=== PATIENT | female | born 1995 | race Caucasian/White ===

== ENCOUNTER → 2019-09-08 10:49 | Outpatient (BNVA) | payer SELFPAY | PROVIDERS: Family Provider Nurse Practitioner; Visit Provider Nurse Practitioner Family | DX: Z11.3 Encounter for screening for infections with a predominantly sexual mode of transmission (principal); R30.0 Dysuria | CPT/HCPCS: 81001; 86592; 87389; 87491; 87591; 87661 ==

== ENCOUNTER → 2020-01-26 09:33 | Outpatient (BNVA) | payer SELFPAY | PROVIDERS: Family Provider Nurse Practitioner; Visit Provider Family Medicine | DX: N30.01 Acute cystitis with hematuria (principal); R30.0 Dysuria | CPT/HCPCS: 81003 ==

== ENCOUNTER 2020-03-25 19:39 | Emergency (ER) | payer SELFPAY ==
[2020-03-25 19:43] VITALS: BP 137/85; PULSE 108; RESP 16; TEMP 36.7; O2SAT 96; BMI 21.8
--- NOTE | 2020-03-25 19:50 | ED_ITS ---
HPI - Anxiety General: Chief Complaint: Anxiety Stated Complaint: Anxiety, SOB Time Seen by Provider: 03/25/20 19:42 Source: patient and EMS Mode of arrival: EMS Limitations: no limitations History of Present Illness: HPI narrative: 24-year-old female states that roughly 1 hour ago she stood up and started feeling anxious and had palpitations. She states she developed tingling and then passed out. She states that she was out for just seconds. She denies any chest pain but does feel anxious currently. She denies any vomiting or diarrhea. She denies any abdominal pain. Associated symptoms: Reports syncope; Deny chills, fever(s), headache(s), nausea or vomiting Review of Systems Const: Denies: fever(s), chills, body aches or change in appetite Eyes: Denies: blurry vision or eye discomfort ENMT: Denies: throat pain or dental pain Card: Reports: syncope Resp: Denies: dyspnea GI: Denies: abdominal pain, nausea, vomiting or diarrhea : Denies: dysuria Musc: Denies: neck pain or back pain Skin/Breast: Denies: rash Neuro: Denies: headache(s) Psych: Reports: anxiety Glenn/Lymph: Denies: easy bruising All/Imm: Denies: urticaria PFSH ED PFSH: Family History Family/Other Dementia Alzheimers Social History Smoking and tobacco status: current every day smoker cigarettes Packs smoked per day: 0.5 Years cigarettes smoked: 6 Second hand smoke exposure: Yes Alcohol intake: current Alcohol intake frequency: few times a week Alcohol type: other Lives independently: Yes Household members: children Housing: House Marital status: Number of children: 2 service: No Current occupational status: unemployed and student Current occupation: [employer] Pets and animals: Yes Pets & animals: other Pets & animal details: rabbit History of recent travel: No Current gender identity: Female Female Reproductive History: Date of last menstrual period: 03/10/20 Physical Exam Const: COMMON NORMALS: no acute distress, patient oriented x3 and healthy appearing HENMT: COMMON NORMALS: normocephalic and atraumatic HEAD & SCALP: normocephalic and atraumatic Eye: COMMON NORMALS: Equal, round and reactive pupils present and EOMs intact bilaterally PUPIL: Yes Equal, round and reactive pupils present Neck/C-Spine: COMMON NORMALS: full ROM and supple Chest: COMMONS NORMALS: normal inspection of the chest and normal palpation of entire chest wall Resp: COMMON NORMALS: normal respiratory effort, No retractions, No use of accessory muscles and clear to auscultation bilaterally AUSCULTATION: clear to auscultation bilaterally Cardio: COMMON NORMALS: regular rate, regular rhythm and No murmurs present (Cardio) RATE: regular rate RHYTHM: regular rhythm GI: COMMON NORMALS: Normal to inspection, nondistended, normoactive bowel sounds present, Soft to palpation, non-tender and no masses PALPATION: Yes Soft to palpation Extremity: COMMON NORMALS: normal to inspection and full ROM Neuro: COMMON NORMALS: patient oriented x3, moves all extremities and no focal motor deficits Psych: COMMON NORMALS: mental status grossly normal, Normal thought process present and cooperative MOOD & AFFECT: Yes anxious THOUGHT PROCESS: Normal thought process present Skin: COMMON NORMALS: no rashes or lesions noted and no wounds GENERAL SKIN EXAM: no rashes or lesions noted Course Vital Signs: Vital signs: Vital Signs Temperature 98.0 F 03/25/20 19:43 Pulse Rate 103 H 03/25/20 20:24 Respiratory Rate 12 03/25/20 20:24 Blood Pressure 128/76 03/25/20 20:24 Pulse Oximetry 98 03/25/20 20:24 MDM - Anxiety MDM Narrative: Medical decision making narrative: Patient presents here with syncopal event along with anxiety. Syncope is likely due to an anxiety attack. EKG and lab work here are normal. Patient feels improved. She has no signs of pulmonary bruising. She is stable for discharge is return if worsening. EKG Data^: EKG 1: Attestation: I personally reviewed and interpreted this EKG as follows: EKG interpretation date: 03/25/20 EKG interpretation time: 20:07 Interpretation: nsr hr [address] or t wave abnormalities qrs 85 qtc 386 Lab Data: Labs: Lab Results 03/25/20 03/25/20 Range/Units 20:00 20:14 WBC 10.0 (4.0-10.0) 10^3/ uL RBC 3.94 L (4.1-5.3) 10^6/u L Hgb 12.0 (11.5-15.3) g/dL Hct 37.3 (37.0-47.0) % MCV 94.7 (81-99) fL MCH 30.5 (28.0-34.0) pg MCHC 32.2 (30.0-36.0) g/dL RDW 14.7 (12.1-15.1) % Plt Count 340 (130-400) 10^3/c mm MPV 9.7 (7.4-10.4) fL Neut % (Auto) 70.9 % Lymph % (Auto) 19.0 % [place] % (Auto) 8.3 % Eos % (Auto) 0.9 % Baso % (Auto) 0.6 % Neut # (Auto) 7.09 (1.8-7.7) 10^3/u L Lymph # (Auto) 1.9 (0.8-4.8) 10^3/u L [place] # (Auto) 0.8 (0.2-0.9) 10^3/u L Eos # (Auto) 0.1 (0.0-0.8) 10^3/u L Baso # (Auto) 0.1 (0.0-0.1) 10^3/u L Nucleated RBC % (a uto) 0 % Nucleated RBCs # 0.0 /100WBC HCG, Qual Negative (Negative) Discharge Plan Discharge Patient Disposition: Home Clinical Impression: Acute anxiety Syncope Qualifiers: Syncope type: unspecified Qualified Code(s): R55 - Syncope and collapse Condition: Stable Prescriptions: No Action nitrofurantoin monohyd/m-cryst [Macrobid] 100 mg capsule 100 mg PO BID Qty: 20 RF: 0 methen-sod phos-meth blue-hyos 81.6-40.8-0.12 mg tablet 1 tab PO QID Qty: 20 RF: 0 Discharge Orders: Discharge Order (Routine); Ordered 03/25/20 Ordered By: Haja Kimble Referrals: Shalini Lomeli, IT INFRASTRUCTURE ARCHITECT-C [Primary Care Provider] - 1-3 days Discharge Diet: Advance as tolerated Discharge Activity: Resume usual activity Patient Instructions: Syncope (ED) Coding Level of Care Code ED Expanded Function Dental Assistant for Chg Fwd Exam Comprehensive
--- NOTE | 2020-03-25 19:50 | ECG_ITS ---
[facility] Test Date: 2020-03-25 Pat Name: Kalyn Jaramillo Department: Room: Gender: Female Channel Rougher: : 1995 Requested By: Haja Kimble Order Number: [id number] Joan MD: Tata Sewell M.D. Measurements Intervals Carman Rate: 93 P: 40 [place]: 138 QRS: 66 QRSD: 85 T: 2 QT: 336 QTc: 418 Interpretive Statements SINUS RHYTHM WITH MARKED SINUS ARRHYTHMIA NONSPECIFIC T-WAVE ABNORMALITY No previous ECG available for comparison Electronically Signed On 03-26-2020 15:48:21 CDT by Tata Sewell M.D. [email or web address]
[2020-03-25] MEDS: LORazepam 2 mg/mL INJ 1 mL 1 MG IVP (20:02)
[2020-03-25 20:13] LABS: Basophils # 0.1 10^3/uL (0.0-0.1); Basophils % 0.6 %; Eosinophils # 0.1 10^3/uL (0.0-0.8); Eosinophils % 0.9 %; Hematocrit 37.3 % (37.0-47.0); Lymphocytes # 1.9 10^3/uL (0.8-4.8); Mean Corpuscular HGB Conc 32.2 g/dL (30.0-36.0); Mean Corpuscular Hemoglobin 30.5 pg (28.0-34.0); Mean Corpuscular Volume 94.7 fL (81-99); Mean Platelet Volume 9.7 fL (7.4-10.4); Monocytes # 0.8 10^3/uL (0.2-0.9); Monocytes % 8.3 %; Neutrophils # 7.09 10^3/uL (1.8-7.7); Neutrophils % 70.9 %; Nucleated Red Blood Cells % 0 %; Platelet Count 340 10^3/cmm (130-400); Red Blood Count 3.94 10^6/uL (4.1-5.3); Red Cell Distribution Width 14.7 % (12.1-15.1)
[2020-03-25 20:24] VITALS: BP 128/76; PULSE 103; RESP 12; O2SAT 98
[2020-03-25 20:48] LABS: HCG Qualitative Urine. Negative (Negative)
[2020-03-25 21:00] VITALS: BP 121/74; PULSE 78; RESP 14; O2SAT 99
== END 2020-03-25 21:02 | disposition home or self-care (01) ==
PROVIDERS: Emergency Provider Emergency Medicine; PCP Nurse Practitioner
DX: F41.9 Anxiety disorder, unspecified (principal); R55 Syncope and collapse; F17.210 Nicotine dependence, cigarettes, uncomplicated
CPT/HCPCS: 12345; 81025; 85025; 93005; 96374; 99282; 99283; J2060

== ENCOUNTER → 2020-04-02 18:43 | Outpatient (BNVA) | payer SELFPAY | PROVIDERS: PCP Nurse Practitioner; Visit Provider Family Medicine | DX: N39.0 Urinary tract infection, site not specified (principal) | CPT/HCPCS: 81003 ==

== ENCOUNTER → 2020-04-13 14:22 | Outpatient (BNVA) | payer SELFPAY | PROVIDERS: PCP Nurse Practitioner; Visit Provider Nurse Practitioner Family | DX: F41.9 Anxiety disorder, unspecified (principal); R30.0 Dysuria; F32.9 Major depressive disorder, single episode, unspecified; Z78.9 Other specified health status; N30.01 Acute cystitis with hematuria | CPT/HCPCS: 81000 ==

== ENCOUNTER → 2020-04-26 16:57 | Outpatient (BNVA) | payer SELFPAY | PROVIDERS: PCP Nurse Practitioner; Visit Provider Nurse Practitioner Family | DX: Z11.3 Encounter for screening for infections with a predominantly sexual mode of transmission (principal) | CPT/HCPCS: 81025; 86592; 86705; 86706; 86709; 86803; 87340; 87491; 87530; 87591; 87661; 87806 ==

== ENCOUNTER 2020-06-14 08:55 | Emergency (ER) | payer SELFPAY ==
[2020-06-14 09:02] VITALS: BP 149/95; PULSE 106; RESP 18; TEMP 36.2; O2SAT 100; BMI 25.3
--- NOTE | 2020-06-14 09:20 | ED_ITS ---
HPI - General: Chief complaint: Vaginal Bleeding Stated complaint: 6 weeks /bleeding Time Seen by Provider: 06/14/20 09:03 History of Present Illness: HPI Narrative: 24-year-old female who presents to the emergency room with complaint of vaginal bleeding. Patient is G4, P2. She estimates her self to be at 6 weeks at this point she has not had an evaluation by DECISION UNIT RN. Bleeding began this morning and is spotty in nature she has not had enough bleeding to need to wear a pad at this point. She does have some abdominal cramping she denies dysuria urgency or frequency by DECISION UNIT RN. Bleeding began this morning and is spotty in nature she has not had enough bleeding to need to wear a pad at this point. Complaint: vaginal bleeding Onset (ago): hour(s) Location: pelvis Severity: mild Quality: Cramping Radiation: pelvis Relieving factors: none Exacerbating factors: none Vaginal bleeding: light Date of Last Menstrual Period: 05/09/20 Associated symptoms: Reports vaginal bleeding; Deny abdominal pain, dysuria, headache(s), malaise, nausea, rash, seizures, kelly rt of breath, syncope, vaginal discharge, visual changes, vomiting or weakness Review of Systems Const: Denies: malaise ENMT: Denies: throat pain, ear or mastoid pain, nasal discharge or nasal congestion Card: Denies: syncope Resp: Denies: dyspnea, productive cough or non-productive cough GI: Denies: abdominal pain, nausea or vomiting : Denies: dysuria or vaginal discharge Skin/Breast: Denies: rash or pruritus Neuro: Denies: headache(s) PFSH ED PFSH: Medical History No pertinent past medical history Surgical History No pertinent past surgical history Family History Family/Other Dementia Alzheimers Social History Smoking and tobacco status: current every day smoker cigarettes Packs smoked per day: 0.5 Years cigarettes smoked: 6 Second hand smoke exposure: Yes Alcohol intake: never Lives independently: Yes Household members: children Housing: House Marital status: Number of children: 2 service: No Current occupational status: unemployed and student Current occupation: [employer] Pets and animals: Yes Pets & animals: other Pets & animal details: rabbit History of recent travel: No Current gender identity: Female Female Reproductive History: Date of last menstrual period: 05/09/20 Physical Exam Const: COMMON NORMALS: no acute distress GENERAL APPEARANCE: cooperative and comfortable ORIENTATION/CONSCIOUSNESS: Yes awake, Yes oriented to person, Yes oriented to place and Yes oriented to time HENMT: COMMON NORMALS: normocephalic, atraumatic and hearing grossly normal bilaterally HEAD & SCALP: normocephalic and atraumatic Neck/C-Spine: COMMON NORMALS: no JVD Resp: COMMON NORMALS: normal respiratory effort, No retractions, No use of accessory muscles and clear to auscultation bilaterally AUSCULTATION: clear to auscultation bilaterally Cardio: COMMON NORMALS: no JVD, regular rate, regular rhythm and No murmurs present (Cardio) RATE: regular rate RHYTHM: regular rhythm GI: COMMON NORMALS: Soft to palpation and No hepatosplenomegaly present AUSCULTATION: Yes normoactive bowel sounds PALPATION: Yes Soft to palpation, No Tenderness to palpation present (GI), No Guarding due to palpation present (GI) and Yes No hepatosplenomegaly present : SPECULUM EXAM - VAGINA: Yes vaginal bleeding OB/EXTERNAL & SPECULUM: vaginal bleeding Extremity: COMMON NORMALS: normal to inspection, capillary refill normal, no clubbing, cyanosis or edema, no calf tenderness and no pedal edema Neuro: SENSORIUM/ORIENTATION: Yes oriented to person, Yes oriented to place and Yes oriented to time Skin: COMMON NORMALS: no rashes or lesions noted GENERAL SKIN EXAM: no rashes or lesions noted Course Vital Signs: Vital signs: Vital Signs Temperature 97.6 F 06/14/20 11:20 Pulse Rate 92 06/14/20 11:20 Respiratory Rate 18 06/14/20 11:20 Blood Pressure 147/92 06/14/20 11:20 Pulse Oximetry 96 06/14/20 11:20 MDM - OB/Uterine Contractions MDM Narrative: Medical decision making narrative: Reviewed findings with the patient. She should have follow-up visit within the next week. If she has significantly worse bleeding return to the emergency room Lab Data: Labs: Lab Results 06/14/20 06/14/20 06/14/20 Range/Units 09:15 09:15 09:15 WBC 8.4 (4.0-10.0) 10^3/ uL RBC 4.45 (4.1-5.3) 10^6/u L Hgb 13.5 (11.5-15.3) g/dL Hct 40.9 (37.0-47.0) % MCV 91.9 (81-99) fL MCH 30.3 (28.0-34.0) pg MCHC 33.0 (30.0-36.0) g/dL RDW 13.6 (12.1-15.1) % Plt Count 340 (130-400) 10^3/c mm MPV 9.8 (7.4-10.4) fL Neut % (Auto) 65.8 % Lymph % (Auto) 25.7 % [place] % (Auto) 5.0 % Eos % (Auto) 2.4 % Baso % (Auto) 0.6 % Neut # (Auto) 5.53 (1.8-7.7) 10^3/u L Lymph # (Auto) 2.2 (0.8-4.8) 10^3/u L [place] # (Auto) 0.4 (0.2-0.9) 10^3/u L Eos # (Auto) 0.2 (0.0-0.8) 10^3/u L Baso # (Auto) 0.1 (0.0-0.1) 10^3/u L Nucleated RBC % (a uto) 0 % Nucleated RBCs # 0.0 /100WBC Ser , Meg i-Qnt 5.15 mIU/mL Blood Type O Positive Rho(D) Type Positive Discharge Plan Discharge Patient Disposition: Home Clinical Impression: Complete miscarriage Condition: Stable Prescriptions: No Action azithromycin 500 mg tablet 1,000 mg PO ONCE 1 Days Qty: 2 RF: 0 Discharge Orders: Discharge Order (Routine); Ordered 06/14/20 Ordered By: Zechariah Blood Referrals: Shalini Lomeli FNP-C [Primary Care Provider] - Activity Restrictions/Additional Instructions: Follow-up with your primary care provider within 1 week Discharge Date/Time: 06/14/20 11:23 Coding Level of Care Code ED Director Payment for Chg Fwd Exam Comprehensive
[2020-06-14 09:23] VITALS: BP 149/95; RESP 16; O2SAT 97
[2020-06-14 09:25] VITALS: BP 149/95; PULSE 92; RESP 18; O2SAT 96
[2020-06-14 09:33] LABS: Basophils # 0.1 10^3/uL (0.0-0.1); Basophils % 0.6 %; Eosinophils # 0.2 10^3/uL (0.0-0.8); Eosinophils % 2.4 %; Hematocrit 40.9 % (37.0-47.0); Hemoglobin 13.5 g/dL (11.5-15.3); Lymphocytes # 2.2 10^3/uL (0.8-4.8); Lymphocytes % 25.7 %; Mean Corpuscular Hemoglobin 30.3 pg (28.0-34.0); Mean Corpuscular Volume 91.9 fL (81-99); Mean Platelet Volume 9.8 fL (7.4-10.4); Monocytes # 0.4 10^3/uL (0.2-0.9); Neutrophils # 5.53 10^3/uL (1.8-7.7); Neutrophils % 65.8 %; Nucleated Red Blood Cells % 0 %; Platelet Count 340 10^3/cmm (130-400); Red Blood Count 4.45 10^6/uL (4.1-5.3); Red Cell Distribution Width 13.6 % (12.1-15.1); White Blood Count 8.4 10^3/uL (4.0-10.0)
--- NOTE | 2020-06-14 09:40 | US_ITS ---
WS: [id number] TRANSABDOMINAL PELVIC AND TRANSVAGINAL PELVIC ULTRASOUND HISTORY: vaginal bleeding COMPARISON: None available. Uterus: 5.7 cm x 3.3 cm x 5.2 cm. Slightly retroflexed uterus. On transvaginal imaging there is compl ete retroflexion of the uterus. Endometrium: 0.8 cm. Normal homogeneity. No intrauterine gestation. Benign calcification along the ju nctional zone. Right ovary: 3.0 cm x 2.7 cm x 1.5 cm. Small follicles. No solid or cystic mass. Normal vascularity. Left ovary: 2.4 cm x 1.7 cm x 2.1 cm. Small follicles. No solid or cystic mass. Normal vascularity. Physiologic free fluid. US/US pelvic with transvaginal IMPRESSION: No intrauterine gestation. If there is a positive beta hCG ectopic is not excluded.
[2020-06-14 09:48] LABS: HCG Quantitative 5.15 mIU/mL
[2020-06-14 11:20] VITALS: BP 147/92; PULSE 92; RESP 18; TEMP 36.4; O2SAT 96
== END 2020-06-14 11:23 | disposition home or self-care (01) ==
PROVIDERS: Emergency Provider Family Medicine; PCP Nurse Practitioner
DX: O03.9 Complete or unspecified spontaneous abortion without complication (principal); F17.210 Nicotine dependence, cigarettes, uncomplicated
CPT/HCPCS: 12345; 36415; 76815; 76830; 76856; 84702; 85025; 86900; 87070; 87205; 87210; 87491; 87591; 87661; 99284

== ENCOUNTER → 2020-08-30 11:19 | Outpatient (BNVA) | payer SELFPAY | PROVIDERS: PCP Nurse Practitioner; Visit Provider Nurse Practitioner Family | DX: Z11.3 Encounter for screening for infections with a predominantly sexual mode of transmission (principal); Z30.09 Encounter for other general counseling and advice on contraception | CPT/HCPCS: 81003; 81025; 87491; 87591 ==

== ENCOUNTER → 2021-11-07 10:13 | Outpatient (BNVA) | payer OTHER, SELFPAY | PROVIDERS: PCP Nurse Practitioner; Visit Provider Nurse Practitioner Family | DX: J06.9 Acute upper respiratory infection, unspecified (principal); J40 Bronchitis, not specified as acute or chronic; R05.9 Cough, unspecified; R06.02 Shortness of breath; Z20.822 Contact with and (suspected) exposure to COVID-19 | CPT/HCPCS: 71046; 80053; 83880; 87635 ==

== ENCOUNTER → 2021-12-02 11:35 | Outpatient (BNVA) | payer OTHER, SELFPAY | PROVIDERS: PCP Nurse Practitioner Family; Visit Provider Nurse Practitioner Family | DX: F41.9 Anxiety disorder, unspecified (principal); F32.9 Major depressive disorder, single episode, unspecified; Z11.3 Encounter for screening for infections with a predominantly sexual mode of transmission; F17.200 Nicotine dependence, unspecified, uncomplicated | CPT/HCPCS: 80053; 84443; 86592; 86695; 86696; 86705; 86706; 86709; 86803; 87340; 87491; 87591; 87661; 87806 ==

== ENCOUNTER 2021-12-11 06:05 | Outpatient (CLI) | payer OTHER, SELFPAY ==
--- NOTE | 2021-12-11 06:15 | USCV_ITS ---
Sally Jaramillo Age: 26 Gender: F : 1995 Exam Date: 12/11/2021 06:20 Ordering Phys: Carmen Burk NP Technologist: TONY Exam Location: [facility] [place] Indication: PALP, SOB, POSS ENLARGED HEART SEEN ON CHEST XRAY BP: 121 / 78 HR: 72 Rhythm: Sinus Technical Quality: Adequate MEASUREMENTS (Male / Female) Normal Values 2D ECHO LV Diastolic Diameter PLAX 3.9 cm 4.2 - 5.9 / 3.9 - 5.3 cm LV Systolic Diameter PLAX 2.2 cm IVS Diastolic Thickness 0.7 cm 0.6 - 1.0 / 0.6 - 0.9 cm IVS Systolic Thickness 1.6 cm LVPW Diastolic Thickness 1.0 cm 0.6 - 1.0 / 0.6 - 0.9 cm LVPW Systolic Thickness 1.6 cm LVOT Diameter 2.0 cm LV Ejection Fraction 2D Teich 76.2 % LV Ejection Fraction MOD 2C 73.5 % LV Ejection Fraction 2C AL 76.7 % LA Diameter 2.6 cm LA Width 2.1 cm LA Height 4.1 cm RA Width 3.5 cm RA Height 3.6 cm Aorta at Sinotubular Diameter 1.8 cm M-MODE Aortic Annulus Diameter 2.5 cm LA Ao Ratio MM 1.0 MV E Point Septal Separation 0.2 cm DOPPLER AV Peak Velocity 120.0 cm/s LVOT Peak Velocity 111.0 cm/s AV Area Cont Eq vti 2.2 cm squared AV Area Cont Eq pk 2.9 cm squared MV Peak Velocity 108.0 cm/s MV Area PHT 3.6 cm squared Mitral E to A Ratio 1.3 MV E' Velocity 54.5 cm/s Mitral E to MV E' Ratio 6.0 Mitral E to LV E' Lateral Ratio 5.4 Mitral E to LV E' Septal Ratio 6.6 TR Peak Velocity 205.7 cm/s TR Peak Gradient 16.9 mmHg TR Mean Velocity 152.7 cm/s TR Mean Gradient 10.9 mmHg TR Velocity Time Integral 57.9 cm TV Peak E Velocity 68.0 cm/s Right Atrial Pressure 3.0 mmHg Pulmonary Artery Systolic Pressu 19.9 mmHg PV Peak Velocity 106.0 cm/s RV Acceleration Time 0.1 s RV Ejection Time 0.3 s RV AcT/ET 0.4 FINDINGS Left Ventricle Normal left ventricular size. LV systolic function is normal with EF of 60-65%. No regional wall motion abnormalities. Diastolic function is normal Right Ventricle The right ventricle is normal in size and function. Right Atrium The right atrium is normal in size. Left Atrium The left atrium is normal in size. Mitral Valve Structurally normal mitral valve without significant stenosis or prolapse. There is trace mitral regurgitation. Aortic Valve Structurally normal aortic valve without significant sclerosis or stenosis. There is no aortic regurgitation. Tricuspid Valve Structurally normal tricuspid valve without significant stenosis. Mild tricuspid regurgitation. Pulmonary artery systolic pressure is normal. Pulmonic Valve Structurally normal pulmonic valve without significant stenosis. There is no pulmonic regurgitation. Pericardium Normal pericardium without effusion. Aorta Normal ascending aorta dimension. CONCLUSIONS LV systolic function is normal with EF of 60-65% Diastolic function is normal Trace mitral regurgitation Mild tricuspid regurgitaion No comparison studies are available Alexy Tee MD (Electronically Signed) Final Date: 16 Dec 2021 12:22 S
== END 2021-12-11 06:06 | disposition home or self-care (01) ==
LOC: RAD 06:06
PROVIDERS: PCP Nurse Practitioner Family; Visit Provider Nurse Practitioner Family
DX: R00.2 Palpitations (principal); R06.02 Shortness of breath; R93.89 Abnormal findings on diagnostic imaging of other specified body structures
CPT/HCPCS: 93306

== ENCOUNTER 2021-12-20 08:27 | Outpatient (CLI) | payer OTHER, SELFPAY ==
--- NOTE | 2021-12-20 08:30 | US_ITS ---
WS: [id number] ULTRASOUND ABDOMEN CLINICAL INFORMATION: R74.8 - Abnormal levels of other serum enzymes COMPARISON: None. FINDINGS: Liver Size: Normal. Craniocaudal length: 14.7 cm. Echogenicity: Normal. Surface nodularity: None. Mass (size and location): None. Bile ducts Intrahepatic ducts: Normal. Common bile duct diameter: 0.42 cm. Gallbladder Small shadowing calculus, sludge ball or polyp. Gallbladder sludge: None. Gallbladder wall thickening: None. Pericholecystic fluid: None. Sonographic Krause sign: Absent. Pancreas Normal as visualized. Right kidney: Normal. Hydronephrosis: None. Size: 10.8 cm x 3.9 cm x 4.1 cm Left kidney: Normal. Hydronephrosis: None. Size: 11.4 cm x 5.0 cm x 4.2 cm. Abdominal aorta and IVC Visualized portions are normal. Ascites: None. US/US abdomen complete* [id number] IMPRESSION: 1. Normal liver. No intrahepatic biliary duct dilatation. 2. Small 3.6 mm gallbladder calculus, polyp or sludge ball. No significant sha dowing. 3. No gallbladder wall thickening or pericholecystic fluid. 4. Normal common bile duct. 5. No hydronephrosis in either kidney.
== END 2021-12-20 08:28 | disposition home or self-care (01) ==
LOC: RAD 08:28
PROVIDERS: PCP Nurse Practitioner Family; Visit Provider Nurse Practitioner Family
DX: R74.8 Abnormal levels of other serum enzymes (principal)
CPT/HCPCS: 76700

== ENCOUNTER → 2022-10-06 17:29 | Outpatient (BNVA) | payer MEDICAID, SELFPAY | PROVIDERS: PCP Nurse Practitioner Family; Visit Provider Nurse Practitioner Family | DX: R00.2 Palpitations (principal) | CPT/HCPCS: 80053; 82607; 83735; 84443; 85025 ==

== ENCOUNTER → 2022-10-20 17:06 | Outpatient (BNVA) | payer MEDICAID, SELFPAY | PROVIDERS: PCP Nurse Practitioner Family; Visit Provider Nurse Practitioner Family | DX: Z30.09 Encounter for other general counseling and advice on contraception (principal) | CPT/HCPCS: 81025 ==

== ENCOUNTER → 2022-10-29 17:20 | Outpatient (BNVA) | payer MEDICAID, SELFPAY | PROVIDERS: PCP Nurse Practitioner Family; Visit Provider Nurse Practitioner Family | DX: Z11.3 Encounter for screening for infections with a predominantly sexual mode of transmission (principal) | CPT/HCPCS: 81003; 81025; 86592; 86695; 86696; 87491; 87591; 87661; 87806 ==

== ENCOUNTER 2022-11-07 08:48 | Outpatient (CLI) | payer MEDICAID, SELFPAY ==
--- NOTE | 2022-11-07 08:45 | US_ITS ---
WS: [id number] ABDOMINAL ULTRASOUND REASON FOR EXAM: R74.8 - Abnormal levels of other serum enzymes COMPARISON: 12/20/2021 ORDER DATE: 11/07/2022 8:52 AM TECHNIQUE: Grayscale and Doppler ultrasound examination of the abdomen. FINDINGS: Pancreas: Unremarkable Abdominal aorta and IVC: Unremarkable Liver: Liver measures 13.3 cm in length. No focal abnormalities Gallbladder: Gallbladder wall thickness measures 0.3 mm. 3.7 mm 5 mm gallbladder polyp adherent to th e gallbladder wall. Left kidney: Left kidney measures 10.3 cm x 5.1 cm x 5.4 cm. No focal abnormality Right kidney: Right kidney measures 9.4 cm x 4.5 cm x 4.2 cm. No focal abnormality Vascular duplex imaging demonstrated satisfactory vascularity in the kidneys and hepatopedal portal v ein flow. US/US abdomen complete* [id number] IMPRESSION: Unchanged appearance of the gallbladder polyp compared with the previous study
== END 2022-11-07 08:49 | disposition home or self-care (01) ==
LOC: RAD 08:50
PROVIDERS: PCP Nurse Practitioner Family; Visit Provider Nurse Practitioner Family
DX: R74.8 Abnormal levels of other serum enzymes (principal); K82.4 Cholesterolosis of gallbladder
CPT/HCPCS: 76700

== ENCOUNTER → 2022-12-31 08:58 | Outpatient (BNVA) | payer BC, MEDICAID, SELFPAY | PROVIDERS: PCP Nurse Practitioner Family; Visit Provider Nurse Practitioner Family | DX: N93.9 Abnormal uterine and vaginal bleeding, unspecified (principal); N94.10 Unspecified dyspareunia | CPT/HCPCS: 81025; 87491; 87591; 87661 ==

== ENCOUNTER 2023-01-02 15:30 | Outpatient (CLI) | payer BC, MEDICAID, SELFPAY ==
--- NOTE | 2023-01-02 15:45 | US_ITS ---
WS: [id number] US pelv w/transvag [id number] HISTORY: N93.9 - Abnormal uterine and vaginal bleeding, unspecified COMPARISON: 06/14/2020 Uterus: 7.7 cm x 4.0 cm x 3.1 cm. Normal size retroverted uterus. No fibroid or mass identified. Endometrium: 0.3 cm. Normal. Right ovary: 3.8 cm x 2.9 cm x 1.9 cm. There are multiple peripheral small follicles of similar size. The number of follicles is less than 20 but suspicious for polycystic ovarian disease. Left ovary: 3.1 cm x 1.7 cm x 2.7 cm. Normal size ovary. Small scattered follicles. No free fluid in the cul-de-sac. US/US pelv w/transvag [id number] IMPRESSION: 1. Normal endometrium. 2. Increased number of peripheral follicles within the RIGHT ovary only. Corre late with possible PCOS.
== END 2023-01-02 15:31 | disposition home or self-care (01) ==
LOC: RAD 15:33
PROVIDERS: PCP Nurse Practitioner Family; Visit Provider Nurse Practitioner Family
DX: N93.9 Abnormal uterine and vaginal bleeding, unspecified (principal); N94.10 Unspecified dyspareunia; R10.32 Left lower quadrant pain
CPT/HCPCS: 76830; 76856; 81025; 87491; 87591; 87661

== ENCOUNTER → 2023-01-20 15:00 | Outpatient (BNVA) | payer BC, MEDICAID, SELFPAY | PROVIDERS: PCP Nurse Practitioner Family; Visit Provider Obstetrics & Gynecology | DX: Z30.9 Encounter for contraceptive management, unspecified (principal) | CPT/HCPCS: 87624 ==

== ENCOUNTER 2023-02-04 09:59 | Day surgery (SDC) | payer BC, MEDICAID, SELFPAY ==
[2023-01-06 12:48] VITALS: BMI 24.3
[2023-02-03 09:30] VITALS: BMI 24.3
[2023-02-04 10:22] VITALS: BP 140/91; PULSE 99; RESP 18; TEMP 36.9; O2SAT 98
[2023-02-04] MEDS: sodium chloride 0.9% 1,000 ML 30 ML IV (10:28)
--- NOTE | 2023-02-04 12:28 | P.ANESASSM_ITS ---
Pre-Anesthetic Assessment Height/Weight: Height 1.57 m Weight 60.328 kg Temp Pulse Resp BP Pulse Ox O2 Del Method 98.4 F 99 18 140/91 98 Room Air 02/04/23 10:22 02/04/23 10:22 02/04/23 10:22 02/04/23 10:22 02/04/23 10:22 02/04/23 10:22 Preop Diagnosis: GERD, Abd pain Operation Date: 02/04/23 10:45 Proposed Procedures p EGD 77041, K21.9,R14.0 ,R11.2, R19.7(Not Applicable) - Sung Parra, DO Was Beta Naz taken within 24 hours: N/A Was Clonidine taken within 24 hours: N/A Last intake: Intake Last Liquid Date 02/03/23 Last Liquid Time 21:30 Last Solid Date 02/03/23 Last Solid Time 21:30 Social Tobacco Exam alert, oriented x 3, clear to auscultation bilaterally and regular rate & rhythm Airway Submandibular: within normal limits Cervical ROM: within normal limits Mallampati: Class II Dentition: full History/ROS No significant history except as noted and No significant complaints CV/HEM None reported None reported Hepatic None reported GI Gastroesophageal Reflux Disease Metabolic None reported Musc/skel None reported Neuropsych Anxiety Anesthetic Plan ASA status: 2 Anesthesia: Anesthesia Evaluation and MAC Risk of > 500 ml blood loss (7ml/kg in children): No Medications/Allergies Home Medications Medication Instructions Recorded Confirmed Last Taken Type metoprolol tartrate 25 mg tablet 25 mg PO BID PRN tachycardia #60 12/01/22 01/20/23 Unknown Rx tabs pantoprazole 40 mg tablet,delayed 40 mg PO BID 6 weeks #84 tabs 01/06/23 02/04/23 02/03/23 Rx release (Protonix) Allergies Allergy/AdvReac Type Severity Reaction Status Date / Time Ibuprofen Allergy Unknown Unknown Uncoded 01/20/23 08:33 Current Medications Generic Name Dose Route Start Last Admin Trade Name Freq PRN Reason Stop Dose Admin Sodium Chloride 1,000 mls @ 30 mls/hr 02/04/23 10:15 02/04/23 10:28 Sodium Chloride 0.9% IV 02/05/23 10:14 30 mls/hr .Q24H JOJO Administration PFSH Anesthesia Medical History (Updated 01/25/23 @ 02:29 by Wilver Britton MD) No pertinent past medical history Surgical History No pertinent past surgical history Family History Family/Other Dementia Alzheimers Social History Smoking and tobacco status: current every day smoker cigarettes Packs smoked per day: 0.5 Years cigarettes smoked: 6 Second hand smoke exposure: Yes Alcohol intake: never Substance/Drug Use: never Lives independently: Yes Household members: children Housing: House Marital status: Number of children: 2 service: No Current occupational status: employed and student Current occupation: [employer] Pets and animals: Yes Pets & animals: other Pets & animal details: rabbit Current gender identity: Female Data Anesthesia Cardiac Studies: Echocardiogram 12/11/21 Holter Monitor 10/23/22
--- NOTE | 2023-02-04 12:41 | W.PM.OPSUD ---
Surgery/Procedure H&P Update DATE OF PROCEDURE: February 04, 2023 DATE H&P PERFORMED: 01/06/23 H&P UPDATE INFORMATION: I have reviewed H&P completed within last 30 days, I have examined patient prior to procedure and No changes to prior documentation PREOP DIAGNOSIS: GERD, Abd pain PLANNED PROCEDURE: Operation Date: 02/04/23 10:45 Proposed Procedures p EGD [id number], K21.9,R14.0 ,R11.2, R19.7(Not Applicable) - Sung Parra DO
[2023-02-04 13:05] VITALS: BP 116/87; PULSE 92; RESP 18; TEMP 36.6; O2SAT 98
[2023-02-04 13:13] VITALS: BP 124/75; PULSE 84; RESP 16; O2SAT 98
[2023-02-04 13:19] VITALS: BP 115/81; PULSE 81; RESP 18; O2SAT 95
--- NOTE | 2023-02-04 13:57 | ANE.PACU2 ---
Inpatient post-anesthesia follow up: Airway intact: Yes Vital signs: Temperature 97.8 F Pulse Rate 81 Respiratory Rate 18 Blood Pressure 115/81 Pulse Oximetry 95 Oxygen Delivery Me thod Room Air Oxygen Flow Rate Fraction of Inspir ed Oxygen Hydration adequate: Yes Nausea and vomiting: No Pain level: 2 Mental status: Baseline
== END 2023-02-04 13:27 | disposition home or self-care (01) ==
PROVIDERS: PCP Nurse Practitioner Family; Visit Provider Surgery
PROC: 0DJ08ZZ Inspection of Upper Intestinal Tract, Via Natural or Artificial Opening Endoscopic (ICD-10-PCS; CPT 43235; principal; 2023-02-04 10:45)
DX: K29.70 Gastritis, unspecified, without bleeding (principal); K21.9 Gastro-esophageal reflux disease without esophagitis; F17.210 Nicotine dependence, cigarettes, uncomplicated
CPT/HCPCS: 43239; 81025; 88305; J2704; J7030

== ENCOUNTER → 2023-02-05 10:20 | Outpatient (BNVA) | payer BC, MEDICAID, SELFPAY | PROVIDERS: PCP Nurse Practitioner Family; Visit Provider Nurse Practitioner Family | DX: N89.8 Other specified noninflammatory disorders of vagina (principal) | CPT/HCPCS: 81003; 87491; 87591; 87661 ==

== ENCOUNTER → 2023-04-22 12:05 | Outpatient (BNVA) | payer BC, MEDICAID, SELFPAY | PROVIDERS: PCP Nurse Practitioner Family; Visit Provider Nurse Practitioner Family | DX: Z11.3 Encounter for screening for infections with a predominantly sexual mode of transmission (principal); R53.83 Other fatigue; R79.89 Other specified abnormal findings of blood chemistry | CPT/HCPCS: 80053; 81003; 82306; 82607; 84443; 85025; 86308; 86592; 86705; 86706; 86709; 86803; 87340; 87491; 87591; 87806 ==

== ENCOUNTER → 2023-05-06 11:43 | Outpatient (BNVA) | payer BC, MEDICAID, SELFPAY | PROVIDERS: PCP Nurse Practitioner Family; Visit Provider Nurse Practitioner Family | DX: R79.89 Other specified abnormal findings of blood chemistry (principal) | CPT/HCPCS: 80053 ==

== ENCOUNTER → 2023-11-25 09:39 | Outpatient (BNVA) | payer MEDICAID, SELFPAY | PROVIDERS: PCP Nurse Practitioner Family; Visit Provider Nurse Practitioner Family | DX: R05.9 Cough, unspecified (principal); R05.1 Acute cough | CPT/HCPCS: 87400; 87426 ==

== ENCOUNTER → 2023-12-16 11:33 | Outpatient (BNVA) | payer MEDICAID, SELFPAY | PROVIDERS: PCP Nurse Practitioner Family; Visit Provider Nurse Practitioner Family | DX: Z30.09 Encounter for other general counseling and advice on contraception (principal); F41.9 Anxiety disorder, unspecified; F32.9 Major depressive disorder, single episode, unspecified | CPT/HCPCS: 80053; 82530; 84443; 85025 ==

== ENCOUNTER → 2024-07-27 09:52 | Outpatient (BNVA) | payer MEDICAID, SELFPAY | PROVIDERS: PCP Nurse Practitioner Family; Visit Provider Nurse Practitioner Family | DX: N64.3 Galactorrhea not associated with childbirth (principal) | CPT/HCPCS: 80053; 81025; 84146; 84443; 85025; 87491; 87591; 87661 ==

== ENCOUNTER → 2024-11-01 09:58 | Outpatient (BNVA) | payer MEDICAID, SELFPAY | PROVIDERS: PCP Nurse Practitioner Family; Visit Provider Nurse Practitioner Family | DX: N89.8 Other specified noninflammatory disorders of vagina (principal); Z72.51 High risk heterosexual behavior | CPT/HCPCS: 86705; 86706; 86709; 86803; 87340; 87491; 87591; 87661 ==

== ENCOUNTER → 2024-12-07 09:04 | Outpatient (BNVA) | payer MEDICAID, SELFPAY | PROVIDERS: PCP Nurse Practitioner Family; Visit Provider Nurse Practitioner Family | DX: R39.9 Unspecified symptoms and signs involving the genitourinary system (principal); R30.0 Dysuria; Z72.51 High risk heterosexual behavior | CPT/HCPCS: 81000; 87086; 87491; 87591; 87661 ==

== ENCOUNTER → 2025-04-05 10:26 | Outpatient (BNVA) | payer MEDICAID, SELFPAY | PROVIDERS: PCP Nurse Practitioner Family; Visit Provider Nurse Practitioner Family | DX: N39.3 Stress incontinence (female) (male) (principal); R53.83 Other fatigue; O92.70 Unspecified disorders of lactation | CPT/HCPCS: 80053; 81000; 81025; 82306; 82607; 84146; 84702; 85025 ==

== ENCOUNTER 2025-04-14 09:31 | Outpatient (CLI) | payer MEDICAID, SELFPAY ==
--- NOTE | 2025-04-14 09:30 | US_ITS ---
WS: [id number] RIGHT UPPER QUADRANT ULTRASOUND HISTORY: R19.7 - Diarrhea, unspecified COMPARISON: 11/07/2022 Liver: 12.8 cm in length. Normal size liver and echogenicity. No bile duct dilatation or mass. Portal Vein: Normal hepatopetal flow with monophasic waveform. Gallbladder: Normally distended gallbladder. There is several hyperplastic gallbladder polyps identified measuring about 4 mm. No stones. CBD: 0.2 cm Pancreas: Normal size and echogenicity. Right kidney: 9.8 cm in length. Normal size and echogenicity. No hydronephrosis or mass. Aorta and IVC: Unremarkable abdominal aorta and IVC. No ascites. US/US gall bladder [id number] IMPRESSION: 1. No cholelithiasis. No evidence for acute cholecystitis. 2. Several hyperplastic gallbladder polyps each measuring approximately 4 mm. Polyps have increased in number since the prior study.
== END 2025-04-14 09:32 | disposition home or self-care (01) ==
LOC: RAD 09:34
PROVIDERS: PCP Nurse Practitioner Family; Visit Provider Nurse Practitioner Family
DX: K82.4 Cholesterolosis of gallbladder (principal); R19.7 Diarrhea, unspecified
CPT/HCPCS: 76705

== ENCOUNTER 2025-04-27 10:35 | Outpatient (CLI) | payer MEDICAID, SELFPAY ==
--- NOTE | 2025-04-27 10:45 | US_ITS ---
WS: [id number] ULTRASOUND BREAST BILATERAL TECHNIQUE: Ultrasound bilateral breast focused area of concern. CLINICAL INFORMATION: N64.3 - Galactorrhea not associated with childbirth COMPARISON: None. FINDINGS: Bilateral retroareolar ultrasound. Dense underlying parenchymal tissue. Mild ductal ectasia bilaterally. No cystic or solid lesions. No suspicious lesions to target for biopsy. No other significant findings. US/US breast BI limited* [id number] IMPRESSION: No suspicious findings. Recommend annual screening mammography age 40
== END 2025-04-27 10:36 | disposition home or self-care (01) ==
LOC: RAD 10:35
PROVIDERS: PCP Nurse Practitioner Family; Visit Provider Nurse Practitioner Family
DX: N64.3 Galactorrhea not associated with childbirth (principal)
CPT/HCPCS: 76642

== ENCOUNTER 2025-05-23 08:13 | Day surgery (SDC) | payer MEDICAID, SELFPAY ==
[2025-05-23 08:40] VITALS: BP 131/86; PULSE 94; RESP 16; TEMP 36.5; O2SAT 97; BMI 24.0
--- NOTE | 2025-05-23 08:42 | P.ANESASSM_ITS ---
Pre-Anesthetic Assessment Height/Weight: Height 5 ft 4 in Weight 140 lb Temp Pulse Resp BP Pulse Ox O2 Del Method 97.7 F 94 16 131/86 97 Room Air 05/23/25 08:40 05/23/25 08:40 05/23/25 08:40 05/23/25 08:40 05/23/25 08:40 05/23/25 08:40 Preop Diagnosis: GERD Operation Date: 05/23/25 09:15 Proposed Procedures p EGD EGD with Biopsy [id number] G0105 R12 R19.4 K51.90(Not Applicable) - Joseluis Pardo MD s Colonoscopy(Not Applicable) - Joseluis Pardo MD Was Beta Naz taken within 24 hours: N/A Was Clonidine taken within 24 hours: N/A Last intake: Intake Last Liquid Date 05/22/25 Last Liquid Time 22:30 Last Solid Date 05/21/25 Social Tobacco and No alcohol Exam alert, oriented x 3, clear to auscultation bilaterally and regular rate & rhythm Airway Submandibular: within normal limits Cervical ROM: within normal limits Mallampati: Class I Dentition: full Anesthetic Plan ASA status: 2 Anesthesia: MAC Other: No prior issues with anesthesia NPO since yesterday evening Completed bowel prep Current smoker GERD, prescribed omeprazole but does not take it regularly Schizophrenia history Plan for MAC anesthesia Medications/Allergies Home Medications ?Medication ?Instructions ?Recorded ?Confirmed ?Last Taken ?Type hydroxyzine HCl 25 mg tablet 25 mg PO TID PRN itching #90 tabs 04/08/24 05/23/25 Unknown Rx phenazopyridine 200 mg tablet 200 mg PO TID PRN pain # 6 tabs 12/07/24 05/23/25 Unknown Rx (Pyridium) omeprazole 40 mg capsule,delayed 40 mg PO DAILY #30 ca ps 05/16/25 05/23/25 Unknown Rx release Allergies Allergy/AdvReac Type Severity Reaction Status Date / Time ibuprofen Allergy Unknown Unknown Verified 05/23/25 08:38 buspirone (From BuSpar) AdvReac Severe ADR-Anxiety Verified 05/23/25 08:38 [facility] Anesthesia Medical History No pertinent past medical history Surgical History No pertinent past surgical history Family History Family/Other Dementia Alzheimers Social History Smoking and tobacco/nicotine status: current every day tobacco/nicotine user cigarettes Packs smoked per day: 0.5 Years cigarettes smoked: 6 Second hand smoke exposure: Yes Alcohol intake: never Substance/Drug Use: never Lives independently: Yes Household members: children Housing: House Marital status: Number of children: 2 service: No Current occupational status: employed and student Current occupation: [employer] Pets and animals: Yes Pets & animals: other Pets & animal details: rabbit Current gender identity: Female Female Reproductive History Date of last menstrual period: 05/05/25 Data Anesthesia Cardiac Studies: Echocardiogram 12/11/21 Holter Monitor 10/23/22
--- NOTE | 2025-05-23 08:44 | W.PM.OPSUD ---
Surgery/Procedure H&P Update DATE OF PROCEDURE: May 23, 2025 DATE H&P PERFORMED: 04/24/25 H&P UPDATE INFORMATION: I have reviewed H&P completed within last 30 days, I have examined patient prior to procedure, No changes to prior documentation and Risks and benefits of the procedure reviewed PREOP DIAGNOSIS: GERD PLANNED PROCEDURE: Operation Date: 05/23/25 09:15 Proposed Procedures p EGD EGD with Biopsy [id number] G0105 R12 R19.4 K51.90(Not Applicable) - Joseluis Pardo MD s Colonoscopy(Not Applicable) - Joseluis Pardo MD
[2025-05-23 08:46] LABS: OR HCG Qualitative Urine Negative (Negative)
[2025-05-23 09:27] VITALS: BP 84/34; PULSE 83; RESP 16; O2SAT 96
[2025-05-23 09:42] VITALS: BP 104/68; PULSE 87; RESP 16; O2SAT 99
[2025-05-23 09:57] VITALS: BP 111/72; PULSE 73; RESP 16; O2SAT 98
--- NOTE | 2025-05-23 10:06 | ANE.PACU2 ---
Inpatient post-anesthesia follow up: Airway intact: Yes Vital signs: Temperature 97.7 F Pulse Rate 73 Respiratory Rate 16 Blood Pressure 111/72 Pulse Oximetry 98 Oxygen Delivery Me thod Room Air Oxygen Flow Rate Fraction of Inspir ed Oxygen Hydration adequate: Yes Nausea and vomiting: No Pain level: 1 Mental status: Baseline
== END 2025-05-23 10:06 | disposition home or self-care (01) ==
PROVIDERS: Student in an Organized Health Care Education/Training Program; PCP Nurse Practitioner Family; Visit Provider Student in an Organized Health Care Education/Training Program
PROC: 0DJ08ZZ Inspection of Upper Intestinal Tract, Via Natural or Artificial Opening Endoscopic (ICD-10-PCS; principal; 2025-05-23 09:15)
PROC: 0DJD8ZZ Inspection of Lower Intestinal Tract, Via Natural or Artificial Opening Endoscopic (ICD-10-PCS; CPT 45378; 2025-05-23 09:15)
DX: R19.7 Diarrhea, unspecified (principal); R12 Heartburn; K57.30 Diverticulosis of large intestine without perforation or abscess without bleeding; D12.2 Benign neoplasm of ascending colon; K29.50 Unspecified chronic gastritis without bleeding; K21.9 Gastro-esophageal reflux disease without esophagitis
CPT/HCPCS: 43239; 45380; 81025; 88305; 88342; J2704; J3010; J7030

== ENCOUNTER → 2025-05-31 15:08 | Outpatient (BNVA) | payer MEDICAID, SELFPAY | PROVIDERS: PCP Nurse Practitioner Family; Visit Provider Obstetrics & Gynecology | DX: Z12.4 Encounter for screening for malignant neoplasm of cervix (principal) | CPT/HCPCS: 84146; 84443; 85007; 85027; 87624 ==

== ENCOUNTER → 2025-06-21 13:11 | Outpatient (BNVA) | payer MEDICAID, SELFPAY | PROVIDERS: PCP Nurse Practitioner Family; Visit Provider Nurse Practitioner Family | DX: Z72.51 High risk heterosexual behavior (principal); N93.9 Abnormal uterine and vaginal bleeding, unspecified | CPT/HCPCS: 81025; 87491; 87591; 87661 ==

== ENCOUNTER 2025-06-28 05:48 | Day surgery (SDC) | payer MEDICAID, SELFPAY ==
[2025-06-28] VITALS (9 sets, daily range): BP systolic 93–126; BP diastolic 50–80; PULSE 71–110; RESP 16–29; TEMP 36.2–36.6; O2SAT 92–100; BMI 24.9
[2025-06-28 06:40] LABS: OR HCG Qualitative Urine Negative (Negative)
--- NOTE | 2025-06-28 06:49 | P.ANESASSM_ITS ---
Pre-Anesthetic Assessment Height/Weight: Height 1.63 m Weight 65.771 kg Temp Pulse Resp BP Pulse Ox O2 Del Method 97.3 F L 96 18 126/80 98 Room Air 06/28/25 06:11 06/28/25 06:11 06/28/25 06:11 06/28/25 06:11 06/28/25 06:11 06/28/25 06:16 Operation Date: 06/28/25 07:00 Proposed Procedures p Laparoscopic Cholecystectomy Lap Chana 78118 K82.4(Not Applicable) - Joseluis Pardo MD Familial anesthetic complications: None Was Beta Nza taken within 24 hours: N/A Was Clonidine taken within 24 hours: N/A Last intake: Intake Last Liquid Date 06/27/25 Last Liquid Time 22:00 Last Solid Date 06/27/25 Last Solid Time 18:00 Social Tobacco and No alcohol Exam alert, oriented x 3, clear to auscultation bilaterally and regular rate & rhythm Airway Dentition: caps (front) CV/HEM Arrythmia (tachycardia) GI Gastroesophageal Reflux Disease Anesthetic Plan ASA status: 2 Anesthesia: General Risk of > 500 ml blood loss (7ml/kg in children): No Medications/Allergies Home Medications ?Medication ?Instructions ?Recorded ?Confirmed ?Last Taken ?Type hydroxyzine HCl 25 mg tablet 25 mg PO TID PRN itching #90 tabs 04/08/24 06/27/25 Unknown Rx omeprazole 40 mg capsule,delayed 40 mg PO DAILY #30 ca ps 05/16/25 06/27/25 06/26/25 Rx release pantoprazole 40 mg tablet,delayed 40 mg PO BID 30 days #60 tabs 06/22/25 06/27/25 06/26/25 Rx release sucralfate 100 mg/mL oral 10 ml PO Q6H 30 days #1,200 mL 06/22/25 06/27/25 06/26/25 Rx suspension Allergies Allergy/AdvReac Type Severity Reaction Status Date / Time ibuprofen Allergy Unknown Unknown Verified 06/22/25 11:10 buspirone (From BuSpar) AdvReac Severe ADR-Anxiety Verified 06/22/25 11:10 Current Medications Generic Name Dose Route Start Last Admin Trade Name Freq PRN Reason Stop Dose Admin Sodium Chloride 1,000 mls @ 30 mls/hr 06/28/25 05:45 06/28/25 06:22 Sodium Chloride 0.9% IV 06/29/25 05:44 30 mls/hr .Q24H JOJO Administration PFSH Anesthesia Medical History No pertinent past medical history Surgical History No pertinent past surgical history Family History Family/Other Dementia Alzheimers Social History Smoking and tobacco/nicotine status: current every day tobacco/nicotine user cigarettes Packs smoked per day: 0.5 Years cigarettes smoked: 6 Second hand smoke exposure: Yes Alcohol intake: never Substance/Drug Use: never Lives independently: Yes Household members: children Housing: House Marital status: Number of children: 2 service: No Current occupational status: employed and student Current occupation: [employer] Pets and animals: Yes Pets & animals: other Pets & animal details: rabbit Current gender identity: Female Data Anesthesia Cardiac Studies: Echocardiogram 12/11/21 Holter Monitor 10/23/22
--- NOTE | 2025-06-28 07:08 | W.PM.OPSUD ---
Surgery/Procedure H&P Update DATE OF PROCEDURE: June 28, 2025 DATE H&P PERFORMED: 06/22/25 H&P UPDATE INFORMATION: I have reviewed H&P completed within last 30 days, I have examined patient prior to procedure, No changes to prior documentation and Risks and benefits of the procedure reviewed CHANGES TO PREVIOUS DOCUMENTATION: Mother present at bedside. Reviewed risks and benefits again. Patient understands that the risks of the surgery include postoperative infection, bleeding, bile leak, incisional hernia, and in very rare instances injuries to the bowel, common bile duct, portal vein, and liver failure. Reviewed nonoperative/minimally invasive options. Answered all of her questions. Patient wants to proceed with surgery. Patient understands that she may need a bailout procedure including open cholecystectomy, partial cholecystectomy, or open fenestrated cholecystectomy. Patient agrees to proceed. PLANNED PROCEDURE: Operation Date: 06/28/25 07:00 Proposed Procedures p Laparoscopic Cholecystectomy Lap Chana 96251 K82.4(Not Applicable) - Joseluis Pardo MD
[2025-06-28] MEDS: ceFAZolin 2,000 mg SDV 2000 MG IVP (07:43)
[2025-06-28] MEDS: lidocaine-epi 1% 20 mL INJ 10 ML INJECTION (07:44)
--- NOTE | 2025-06-28 08:20 | P.OP_ITS ---
Operative Report Date of procedure: June 28, 2025 Pre-op diagnosis: Gallbladder polyps Post-op diagnosis: same Post-op findings: Unremarkable gallbladder Procedure done: Laparoscopic cholecystectomy Implants: N/A Specimens removed/disposition: Gallbladder sent to pathology Pathology: Gallbladder sent to pathology Surgeon: Joseluis Pardo MD Counter Intelligence Technician: N/A Anesthesia: General Estimated blood loss (mL): 10 Complications: N/A Findings: Unremarkable gallbladder. Condition: stable Disposition: same day Brief History: 29-year-old female who presented with gallbladder polyps. Discussed risk and benefits and patient agreed to proceed with laparoscopic cholecystectomy po ssible open. Procedure: I discussed the risks and benefits of laparoscopic cholecystectomy, possible open, and obtained consent prior to proceeding to the operating room. SCDs were utilized. Prophylactic antibiotics were administered. General anesthesia was induced. The patient was placed supine, and was prepped and draped in the usual sterile fashion. Insufflation to 15mmHg was achieved using a Veress needle at Miguel's point. A 5mm optiview trocar was placed at the umbilicus under direct visualization. The left upper quadrant was inspected, and no injuries were noted. Two 5mm ports were placed in the right upper quadrant, and a 12mm working port was placed in the epigastrium. The gallbladder was then retracted cephalad through the lateral RUQ port, and the infundibulum grabbed through the medial RUQ port and retracted laterally. The gallbladder was not inflammed consistent with the diagnosis of gallbladder polyps. I proceeded to score the peritoneum over the medial aspect of the gallbladder using a laparoscopic hook with electrocautery. Then the infundibulum was retracted medially in order to score the peritoneum over the lateral aspect of the galbladder. Using a combination of energy and blunt dissection with the [place] and a Kittner dissector, the cystic artery and cystic duct were dissected. I then proceeded to dissect the cystic plate in order to to achieve the critical view of safety (CVS - hepatocystic triangle was cleared of fat and fibrous tissue, the lower one-third of the gallbladder was from the liver to expose the cystic plate, two and only two structures were seen entering the gallbladder, the cystic duct and the cystic artery). The cystic artery and the cystic duct were clipped three times (leaving two clips on the proximal end of both structures). I then proceeded to dissect the gallbladder off the liver using hook electrocautery. The specimen was placed in an endocatch bag and retrieved from the abdomen through the port on the epigastrium. I then irrigated the gallbladder fossa with 1L of NS to confirm adequate hemostasis and the absence of any bile leaks. The gallbladder fossa was then cauterized again. Fibrin glue was applied to the resection bed. Prior to ending the laparoscopic portion, I examined the rest of the abdomen and did not find any abnormalities or injuries. The abdomen was then desufflated. Skin was closed using 4-0 monocryl and surgical glue. The patient woke up from anesthesia and transferred to PACU without any complications.
--- NOTE | 2025-06-28 10:00 | ANE.PACU2 ---
Inpatient post-anesthesia follow up: Airway intact: Yes Vital signs: Temperature 97.8 F Pulse Rate 84 Respiratory Rate 18 Blood Pressure 113/58 Pulse Oximetry 98 Oxygen Delivery Me thod Room Air Oxygen Flow Rate 10 Fraction of Inspir ed Oxygen Hydration adequate: Yes Nausea and vomiting: No Pain level: 1 Mental status: Baseline
== END 2025-06-28 10:00 | disposition home or self-care (01) ==
PROVIDERS: Anesthesiology; PCP Nurse Practitioner Family; Visit Provider Student in an Organized Health Care Education/Training Program
PROC: 0FT44ZZ Resection of Gallbladder, Percutaneous Endoscopic Approach (ICD-10-PCS; CPT 47562; principal; 2025-06-28 07:00)
DX: K82.4 Cholesterolosis of gallbladder (principal); I49.9 Cardiac arrhythmia, unspecified; K21.9 Gastro-esophageal reflux disease without esophagitis; F17.210 Nicotine dependence, cigarettes, uncomplicated
CPT/HCPCS: 47562; 81025; 88304; C9250; J0690; J1100; J1171; J1885; J2250; J2405; J2704; J3010; J3490; J7030; J9999